=== PATIENT | female | born 1965 | race Caucasian/White ===

== ENCOUNTER 2017-04-19 09:03 | Emergency (ER) | payer OTHER ==
[2017-04-19] MEDS ORDERED: Rabies Immune Globulin 10 ML* 150 UNIT/ML VIAL IM ONE (11:00)
[2017-04-19] MEDS ORDERED: Rabies Vaccine, PCEC INJ* 1 ml IM ONE (11:00)
[2017-04-19] MEDS ORDERED: Sulfamethox/Trimethoprim DS 800/160* TAB PO ONE (11:37)
[2017-04-19] MEDS ORDERED: metroNIDAZOLE TAB* 250 MG PO ONE (11:37)
--- NOTE | 2017-04-19 12:11 | ED ---
Bite Injury/Animal - HPI Summary HPI Summary: Pt here w/ Lt leg injury - unknown dog bit her here 2 days ago while hiking in [facility]. She was wearing pants but broke through pants and some skin - wound has closed but has bruising. Did not get tx'd there in [facility] d/t poor health care conditions. Washed area with soap and water and alcohol. Tetanus 6 weeks ago. Denies pain - just sore and bruised. Denies fever, chills, numbness, tingling, weakness. No previous rabies vaccine. No anbx. - History of Current Complaint Chief Complaint: EDAnimalBite Stated Complaint: DOG BITE LT LEG Time Seen by Provider: 04/19/17 09:41 Hx Obtained From: Patient Pain Intensity: 0 - Allergies/Home Medications Allergies/Adverse Reactions: Allergies Allergy/AdvReac Type Severity Reaction Status Date / Time Amoxicillin [From Augmentin] Allergy Mild Rash Verified 04/19/17 09:39 Clavulanic Acid Allergy Mild Rash Verified 04/19/17 09:39 [From Augmentin] PMH/Surg Hx/FS Hx/Imm Hx Previously Healthy: Yes Endocrine/Hematology History: Denies: Hx Anticoagulant Therapy, Hx Blood Disorders, Autoimmune Disease - Cancer History Cancer Type, 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 Hx Chemotherapy: Yes - 2006 LYMPHOMA Hx Radiation Therapy: No - Immunization History Immunizations Up to Date: Yes Infectious Disease History: No Infectious Disease History: Reports: Traveled Outside the in Last 30 Days - [facility] - Family History Known Family History: Positive: None - Social History Alcohol Use: None Hx Substance Use: No Substance Use Type: Reports: None Hx Tobacco Use: No Smoking Status (MU): Never Smoked Tobacco Review of Systems Constitutional: Negative Negative: Fever, Chills Cardiovascular: Negative Negative: Chest Pain Respiratory: Negative Negative: Shortness Of Breath Gastrointestinal: Negative Negative: Vomiting, Nausea Positive: no symptoms reported Musculoskeletal: Negative Skin: Other - see HPI Neurological: Negative Negative: Headache, Weakness, Numbness Psychological: Normal All Other Systems Reviewed And Are Negative: Yes Physical Exam Triage Information Reviewed: Yes Vital Signs On Initial Exam: Initial Vitals Temp Pulse Resp BP Pulse Ox 98.2 F 60 18 124/85 99 04/19/17 09:10 04/19/17 09:10 04/19/17 09:10 04/19/17 09:10 04/19/17 09:10 Vital Signs Reviewed: Yes Appearance: Positive: Well-Appearing, No Pain Distress, Well-Nourished Skin: Positive: Warm - scab and ecchymosis over Lt thigh - mild erythema - no milena edema nor fever to touch - no streaking or purulent drainage, Dry Head/Face: Positive: Normal Head/Face Inspection Eyes: Positive: EOMI ENT: Positive: Hearing grossly normal Respiratory/Lung Sounds: Positive: Breath Sounds Present Cardiovascular: Positive: Pulses are Symmetrical in both Upper and Lower Extremities. Negative: Leg Edema Left, Leg Edema Right Musculoskeletal: Positive: Normal, Strength/ROM Intact Neurological: Positive: Normal, Sensory/Motor Intact, Alert, Oriented to Person Place, Time, CN Intact II-III Psychiatric: Positive: Normal Diagnostics - Vital Signs Vital Signs Temp Pulse Resp BP Pulse Ox 04/19/17 09:35 72 98 04/19/17 09:33 97.8 F 62 16 126/80 99 04/19/17 09:10 98.2 F 60 18 124/85 99 - Laboratory Lab Statement: Any lab studies that have been ordered have been reviewed, and results considered in the medical decision making process. Bite Injury Course/Dx - Course Course Of Treatment: Wound cleaed and covered with sterile salie compress to soften scab. Without success, area could not longer be cleaned. Rabies imm and immunoglobulin provided. Anbx started (pt had to take alternative as she has augmentin allergy). Will f/u w/ health dept for remaining vaccine series. Reviewed danger s/sx of when to return to ED. - Diagnoses Provider Diagnosis: Dog bite of left thigh Discharge - Discharge Plan Condition: Stable Disposition: HOME Prescriptions: Metronidazole [Flagyl 500 MG TAB] 500 mg PO TID #29 tab Sulfamethox/Trimethoprim DS* [Bactrim DS 800/160 TAB*] 1 tab PO BID #19 tab Patient Education Materials: Animal Bite (ED) Referrals: Saleem Allison MD [Primary Care Provider] - Additional Instructions: Rest, ice, elevate and compress area for swelling/pain You may take ibuprofen with food for pain, swelling Complete antibiotics as directed. Follow-up with health department for remaining rabies vaccines *If you develop fever, chills, chest pain, difficulty breathing, purulent drainage from wound, return to ED
[2017-04-19 14:58] VITALS: BP 117/72
== END 2017-04-19 12:47 | disposition home or self-care (01) ==
LOC: ED 09:03
DX: S71.152A Open bite, left thigh, initial encounter (principal); W54.0XXA Bitten by dog, initial encounter; Y93.9 Activity, unspecified; Y92.9 Unspecified place or not applicable
CPT/HCPCS: 90375; 90675; 96372; 99282; A9270-GY